=== PATIENT | male | born 1960 | race Caucasian/White ===

== ENCOUNTER 2019-06-20 15:01 | Inpatient (IN) | payer OTHER ==
[~2019-06-20] VITALS: Ht 175.3 cm; Wt 118.4 kg
[~2019-06-20 15:01] MED LIST: HYDR1TAB94 PO
[2019-06-20 15:36] LABS: BASOPHILS ABSOLUTE AUTO 0.07 K/mm3 (0.00-0.23); BASOPHILS PERCENT AUTO 0 % (0-2); EOSINOPHILS PERCENT AUTO 0 % (0-6); Hematocrit 34.9 % (37.0-53.0); Hemoglobin 12.9 g/dL (13.5-17.5); IMMATURE GRAN ABSOLUTE AUTO 1.03 K/mm3 (0.00-0.10); IMMATURE GRAN PERCENT AUTO 6 % (0-1); LYMPHOCYTES PERCENT AUTO 5 % (21-46); MONOCYTES ABSOLUTE AUTO 0.71 K/mm3 (0.16-1.47); MONOCYTES PERCENT AUTO 4 % (4-13); Mean Corpuscular HGB 35.3 pg (26.0-34.0); Mean Corpuscular Volume 96 fL (80-100); Mean Platelet Volume 11.2 fL (9.1-12.4); NEUTROPHILS ABSOLUTE AUTO 15.46 K/mm3 (1.96-9.15); NEUTROPHILS PERCENT AUTO 85 % (41-73); NRBC ABSOLUTE 0.05 K/mm3 (0.00-0.02); NRBC Auto 0.3 /100 WBC (0.0-0.2); Platelet Count 293 K/mm3 (150-400); RDW Coefficient Variation 20.2 % (11.7-14.2); RDW Standard Deviation 67.9 fL (35.1-46.3); Red Blood Cell Count 3.65 M/mm3 (4.30-5.90); White Blood Cell Count 18.17 K/mm3 (4.00-11.30)
[2019-06-20] MEDS ORDERED: METO25 PO (15:39)
[2019-06-20] MEDS ORDERED: SPIR25 PO (15:40)
[2019-06-20] MEDS ORDERED: FLUT1DIS5 INH (15:41)
[2019-06-20] MEDS ORDERED: BUPR150ER PO (15:41)
[2019-06-20] MEDS ORDERED: TAMS.4ER PO (15:41)
[2019-06-20] MEDS ORDERED: Mobic15 MG PO (15:42)
[2019-06-20] MEDS ORDERED: ALBU90OI INH (15:42)
[2019-06-20 15:55] LABS: C-REACTIVE PROTEIN, EXT RANGE 17.1 mg/dL (0.000-0.300); Magnesium, Blood 2.2 mg/dL (1.6-2.4)
[2019-06-20 15:59] LABS: Alanine Aminotransfer (ALT/SGP 63 U/L (12-78); Albumin, Blood 1.5 g/dL (3.4-5.0); Albumin/Globulin Ratio 0.3 (0.8-1.8); Alk Phos 302 U/L (50-136); Anion Gap 14 mmol/L (6-16); Aspartate Aminotrans (AST/SGOT 407 U/L (12-37); Bilirubin, Total 12.6 mg/dL (0.1-1.0); Blood Urea Nitrogen 61 mg/dL (8-24); Bun/Creatinine Ratio 36.1 (12.0-20.0); CO2, Blood 20 mmol/L (21-32); Calcium, Blood 7.2 mg/dL (8.5-10.1); Chloride, Blood 98 mmol/L (98-108); Creatinine, Blood 1.69 mg/dL (0.60-1.20); Glomerular Filtration Rate 44 (60-); Glucose, Blood 91 mg/dL (70-99); Potassium, Blood 3.6 mmol/L (3.5-5.5); Sodium, Blood 132 mmol/L (136-145); Total Protein, Blood 6.5 g/dL (6.4-8.2); Troponin I <0.015 ng/mL (0.000-0.040)
[2019-06-20 16:28] LABS: International Normalized Ratio 1.69; Prothrombin Time Results 17.6 Sec (9.7-11.5)
[2019-06-20 17:32] LABS: Source, Urine Clean Catch
[2019-06-20 17:39] LABS: Blood, Urine 1+ (Neg); Glucose Qualitative, Urine Neg (Neg); Ketones, Urine 1+ (Neg); Leukocyte Esterase, Urine 1+ (Neg); Nitrite, Urine Pos (Neg); Protein, Urine 1+ (Neg); Urobilinogen, Urine 3+ (Normal)
[2019-06-20 17:46] LABS: Appearance, Urine Hazy (Clear); Bilirubin, Urine 3+ (Neg); Color, Urine Orange (P-Yellow)
[2019-06-20 17:54] LABS: U Amphetamine Screen DETECTED; U Barbituate Screen Not Detected; U Benzodiazapine Screen Not Detected; U Buprenorphine Screen Not Detected; U Cannabinoids Screen Not Detected; U Cocaine Screen Not Detected; U Methadone Screen Not Detected; U Methamphetamine Screen DETECTED; U Opiates Screen Not Detected; U Oxycodone Screen Not Detected; U Phencyclidine Screen Not Detected; U Propoxyphene Screen Not Detected
[2019-06-20 17:55] LABS: Amorphous Light (0-Heavy); Bacteria Many /hpf; Hyaline Casts 0-2 /lpf (0-2); Mucus Light (0-Heavy); Squamous Epithelial Cells Few /hpf (Few)
--- NOTE | 2019-06-21 03:58 | NUR ---
SHIFT SUMMARY PT IS A/O X4 AND IND. IN ROOM. PT DOES NEED STANDBY ASSIST AT TIMES FOR WEAKNESS AND SOB. PT REPORTS SOME SHORTNESS OF BREATH WITH EXERTION. PT HAS NOT REQUIRED O2 DURING THE NIGHT TO MAINTAIN O2 SATURATION ABOVE 92%. SKIN APPEARS JAUNDICED AND PT DOES HAVE SIGNIFICANT BLE EDEMA. TELE HAS BEEN IN PLACE THROUGHOUT THE SHIFT. NO ACUTE CHANGES. ASSISTED WITH ADL'S PRN.
[2019-06-21 04:54] LABS: BASOPHILS ABSOLUTE AUTO 0.06 K/mm3 (0.00-0.23); BASOPHILS PERCENT AUTO 0 % (0-2); EOSINOPHILS ABSOLUTE AUTO 0.01 K/mm3 (0.00-0.68); EOSINOPHILS PERCENT AUTO 0 % (0-6); Hemoglobin 12.3 g/dL (13.5-17.5); IMMATURE GRAN ABSOLUTE AUTO 1.12 K/mm3 (0.00-0.10); IMMATURE GRAN PERCENT AUTO 7 % (0-1); LYMPHOCYTES ABSOLUTE AUTO 0.94 K/mm3 (0.84-5.20); LYMPHOCYTES PERCENT AUTO 6 % (21-46); MONOCYTES ABSOLUTE AUTO 0.82 K/mm3 (0.16-1.47); MONOCYTES PERCENT AUTO 5 % (4-13); Mean Corpuscular HGB 34.6 pg (26.0-34.0); Mean Corpuscular HGB Conc 35.1 g/dL (31.5-36.5); Mean Platelet Volume 11.2 fL (9.1-12.4); NEUTROPHILS ABSOLUTE AUTO 12.82 K/mm3 (1.96-9.15); NEUTROPHILS PERCENT AUTO 81 % (41-73); NRBC ABSOLUTE 0.04 K/mm3 (0.00-0.02); NRBC Auto 0.3 /100 WBC (0.0-0.2); Platelet Count 238 K/mm3 (150-400); RDW Coefficient Variation 21.2 % (11.7-14.2); RDW Standard Deviation 74.3 fL (35.1-46.3); Red Blood Cell Count 3.55 M/mm3 (4.30-5.90); White Blood Cell Count 15.77 K/mm3 (4.00-11.30)
[2019-06-21 05:08] LABS: International Normalized Ratio 1.77; Prothrombin Time Results 18.3 Sec (9.7-11.5)
[2019-06-21 05:15] LABS: Mean Corpuscular Volume 99 fL (80-100)
[2019-06-21 05:32] LABS: Albumin, Blood 1.3 g/dL (3.4-5.0); Albumin/Globulin Ratio 0.3 (0.8-1.8); Bilirubin, Total 11.9 mg/dL (0.1-1.0); Bun/Creatinine Ratio 32.3 (12.0-20.0); Calcium, Blood 6.8 mg/dL (8.5-10.1); Creatinine, Blood 1.61 mg/dL (0.60-1.20); Globulin, Blood 4.7 g/dL (2.2-4.0); Potassium, Blood 3.5 mmol/L (3.5-5.5)
[2019-06-21 05:34] LABS: BAND PERCENT MAN 7 % (0-8); BASOPHILS PERCENT MAN 0 % (0-2); EOSINOPHILS PERCENT MAN 0 % (0-6); LYMPHOCYTES ABSOLUTE MAN 1.73 K/mm3 (0.84-5.20); LYMPHOCYTES PERCENT MAN 11 % (21-46); MONOCYTES ABSOLUTE MAN 0.15 K/mm3 (0.16-1.47); MONOCYTES PERCENT MAN 1 % (4-13); NEUTROPHILS ABSOLUTE MAN 13.87 K/mm3 (1.96-9.15); SEG NEUTROPHILS PERCENT MAN 81 % (41-73); TOTAL CELLS COUNTED 100
--- NOTE | 2019-06-21 10:08 | NUR ---
CARE ASSUMED REPORT RECEIVED, CARE ASSUMED AT 0700 FROM BEBA BURDEN. PT RESTING QUIETLY IN BED, DECLINES NEEDS ON INITIAL ROUNDS. DURING ASSESSMENT, PT BECOMES FRUSTRATED, SWEARING ABOUT CIRCUMSTANCES, MEDICAL EQUIPMENT AND FREQUENCY OF STAFF AT BEDSIDE. PT EDUCATED. AGREEABLE AND REDIRECTABLE. PLAN MADE WITH PATIENT TO BUNDLE CARE. PT REPORTS SHORTNESS OF BREATH AT REST, BUT REPORTS IT IS GETTING BETTER. VITALS STABLE. PT REPORTS NEEDING TO USE BATHROOM. REFUSES HELP OR THE USE OF URINAL. REFUSES STAFF TO BE AT SIDE. REFUSES SOCKS. GETS TO BATHROOM AND BACK TO BED WITH MINIMAL DIFFICULTY. PT DOES REPORT INCREASED SOB. PT IS WEAK, BUT STEADY ON FEET. AGREEABLE TO USE CALL LIGHT FOR STAFF STANDBY FOR GETTING UP TO USE RESTROOM. PT REFUSES FULL SKIN ASSESSMENT AND DECLINES FRESH UNDERWEAR HIS ARE FROM HOME. CALL LIGHT IN REACH.
--- NOTE | 2019-06-21 12:16 | NUR ---
ECHOCARDIOGRAM COMPLETE
[2019-06-21 14:35] LABS: Adenovirus Not Detected (NOT DETECT); Bordetella pertussis Not Detected (NOT DETECT); Chlamydophila pneumoniae Not Detected (NOT DETECT); Coronavirus 229E Not Detected (NOT DETECT); Coronavirus HKU1 Not Detected (NOT DETECT); Coronavirus NL63 Not Detected (NOT DETECT); Coronavirus OC43 Not Detected (NOT DETECT); Human Metapneumovirus Not Detected (NOT DETECT); Human Rhinovirus/Enterovirus Not Detected (NOT DETECT); Influenza A/2009-H1 Not Detected (NOT DETECT); Influenza A/H1 Not Detected (NOT DETECT); Influenza A/H3 Not Detected (NOT DETECT); Influenza B Not Detected (NOT DETECT); Mycoplasma pneumoniae Not Detected (NOT DETECT); Parainfluenza Virus 1 Not Detected (NOT DETECT); Parainfluenza Virus 2 Not Detected (NOT DETECT); Parainfluenza Virus 3 Not Detected (NOT DETECT); Parainfluenza Virus 4 Not Detected (NOT DETECT); Respiratory Syncytial Virus Not Detected (NOT DETECT)
--- NOTE | 2019-06-21 17:48 | NUR ---
SUMMARY THROUGHOUT DAY, PT NOTED TO BE GETTING UP WITHOUT USING CALL LIGHT. EDUCATED FREQUENTLY, PT SHRUGS OFF EDUCATION, SAYING, "YEAH, MMHMM," AND THEN GETTING UP ANYWAYS. BED ALARM INITIATED DUE TO THIS, AND SINCE THEN PT HAS CALLED APPROPRIATELY. PT EATING ONLY SMALL AMOUNT OF MEALS BECAUSE "IT'S DISCUSTING." PT USING PROFANITIES WITH EVERY SENTENCE, BUT IS CALM AND MOSTLY COOPERATIVE. PT EDUCATED WITH EVERY INTERACTION REGARDING PLAN OF CARE, REASONING FOR VARIOUS INTERVENTIONS, AND PT'S RIGHTS AND RESPONSIBILITIES. PT REPOSITIONING SELF OCCASIONALLY IN BED, BUT HAS BEEN RESTING QUIETLY FOR MOST OF THE DAY. DENIES PAIN THROUGHOUT DAY. VITALS STABLE. CONTINUOUS TELEMETRY MONITORING, NO ACUTE EVENTS. SIGNIFICANT EDEMA CONTINUES TO BILATERAL LEGS. PT USES BATHROOM FREQUENTLY, BUT REFUSES STAFF ASSIST OR USE OF URINAL TO MEASURE ON MOST OCCASIONS, STATING, "I GOT IT," AND NOT ALLOWING STAFF TIME TO EDUCATE THE REASON. NO BOWEL MOVEMENT THIS SHIFT. PT STATES, "I HATE MY KIDS." WHEN ASKED ABOUT SUPPORT SYSTEM HE MENTIONS HE HAS A GIRLFRIEND OF A FEW YEARS. ASKED IF PT FEELS HE NEEDS FURTHER SUPPORT AND HE STATES, "NO." TELLS ME THAT ALL THE PEOPLE IN [place] SHOULD , USING VARIOUS PROFANITIES, BUT IS NOT AGGRESSIVE AT ALL TOWARDS STAFF.
--- NOTE | 2019-06-21 22:34 | NUR ---
ASSUMED CARE AT 1900. PT HAS REPORTED SOB WITH EXERTION BUT OTHERWISE STATES HE FEELS MUCH BETTER. PT REFUSES HELP TO BATHROOM; EDUCATION PROVIDED ON SAFETY. PT IS AGREEABLE TO CALL WHEN HE NEEDS TO USE RESTROOM. URINAL AT BEDSIDE. PT IS STABLE ON HIS FEET BUT GETS SOB AT TIMES. PT REFUSES NON-SKID SOCKS AND FRESH UNDERWEAR. PT EXPRESSED APPRECIATION FOR THE QUALITY OF CARE HE IS RECEIVING HERE, ALTHOUGH HE DOES GET AGITATED BY FREQUENCY OF STAFF PROVIDING CARE. DISCUSSED NECESSITY OF INTERVENTIONS AND BUNDLING CARE. PT RESTING QUIETLY IN BED AT THIS TIME. WCTM.
--- NOTE | 2019-06-22 03:50 | NUR ---
SHIFT SUMMARY PT IS A/O X4. HE HAS BEEN STABLE ON HIS FEET BUT GETS SOB WITH EXERTION. PT HAS BEEN ENCOURAGED TO USE CALL LIGHT WHEN HE NEEDS TO USE RESTROOM AND HAS BEEN COMPLIANT WITH THIS DURING THE NIGHT. URINAL IS AT BEDSIDE WELL. LUNGS HAVE SOUNDED WHEEZY, HOWEVER THEY DO SOUND IMPROVED SINCE 06/19 NOC SHIFT. PT REPORTS FEELING BETTER AND LESS SOB THAN YESTERDAY. PT DOES HAVE BLE EDEMA WHICH HE THINKS IS IMPROVING WELL. PT HAS SEEMED ANNOYED / IRRITABLE AT TIMES BUT HAS BEEN COMPLIANT WITH CARE. NO ACUTE CHANGES. WCTM.
[2019-06-22 04:43] LABS: Hematocrit 34.3 % (37.0-53.0); Hemoglobin 12.1 g/dL (13.5-17.5); Mean Corpuscular HGB 34.7 pg (26.0-34.0); Mean Corpuscular HGB Conc 35.3 g/dL (31.5-36.5); Mean Corpuscular Volume 98 fL (80-100); Mean Platelet Volume 11.2 fL (9.1-12.4); NRBC ABSOLUTE 0.03 K/mm3 (0.00-0.02); NRBC Auto 0.2 /100 WBC (0.0-0.2); Platelet Count 223 K/mm3 (150-400); RDW Coefficient Variation 21.3 % (11.7-14.2); Red Blood Cell Count 3.49 M/mm3 (4.30-5.90); White Blood Cell Count 16.92 K/mm3 (4.00-11.30)
[2019-06-22 04:59] LABS: International Normalized Ratio 1.61; Prothrombin Time Results 16.8 Sec (9.7-11.5)
[2019-06-22 05:06] LABS: Alanine Aminotransfer (ALT/SGP 60 U/L (12-78); Albumin, Blood 1.3 g/dL (3.4-5.0); Albumin/Globulin Ratio 0.3 (0.8-1.8); Alk Phos 283 U/L (50-136); Anion Gap 9 mmol/L (6-16); Aspartate Aminotrans (AST/SGOT 349 U/L (12-37); Bilirubin, Total 13.3 mg/dL (0.1-1.0); Blood Urea Nitrogen 35 mg/dL (8-24); Bun/Creatinine Ratio 37.2 (12.0-20.0); CO2, Blood 25 mmol/L (21-32); Calcium, Blood 6.9 mg/dL (8.5-10.1); Chloride, Blood 103 mmol/L (98-108); Creatinine, Blood 0.94 mg/dL (0.60-1.20); Globulin, Blood 4.7 g/dL (2.2-4.0); Glomerular Filtration Rate >60 (60-); Glucose, Blood 81 mg/dL (70-99); Magnesium, Blood 1.9 mg/dL (1.6-2.4); Phosphorus, Blood 2.2 mg/dL (2.5-4.9); Sodium, Blood 137 mmol/L (136-145)
[2019-06-22 05:54] LABS: BAND PERCENT MAN 8 % (0-8); BASOPHILS PERCENT MAN 0 % (0-2); EOSINOPHILS PERCENT MAN 0 % (0-6); LYMPHOCYTES ABSOLUTE MAN 1.18 K/mm3 (0.84-5.20); LYMPHOCYTES PERCENT MAN 7 % (21-46); METAMYELOCYTE ABSOLUTE MAN 0.33 K/mm3 (0.00-0.00); METAMYELOCYTE PERCENT MAN 2 % (0-0); MONOCYTES ABSOLUTE MAN 0.84 K/mm3 (0.16-1.47); MONOCYTES PERCENT MAN 5 % (4-13); NEUTROPHILS ABSOLUTE MAN 14.55 K/mm3 (1.96-9.15); SEG NEUTROPHILS PERCENT MAN 78 % (41-73); TOTAL CELLS COUNTED 100
--- NOTE | 2019-06-22 08:00 | NUR ---
pt laying in bed awake a/ox3, states he didn't sleep well and wants to sleep for a while, cooperative with care, follows commands well, denies pain or concerns, lungs have exp wheezing t/o, resp even and unlabored, occ prod cough, sob with exetion, hrr, tele in place running sr per monitor, see strip, edema noted to b/l le, cap refill <3sec, vs stable, afebrile, iv site to left fa, site is clear and patent, btx4, abd flat soft nontender, voids without diff, skin c/w/d, maew, luz marina, call light in reach.
--- NOTE | 2019-06-22 14:06 | NUR ---
pt status has been changed to medical, he is informed, and we have a room for him. gave report to Aleshia. will transfer him up to medical via wheelchair.
--- NOTE | 2019-06-22 18:09 | NUR ---
A+O, NEW FROM PCU, rm air, saline locked, call light in reach, sleepy and wants to be left alone, alarm on bed due to unsteady on feet, cooperative with direct instructions but tends to want to do own thing when left unsupervised, senior care manager needs warning before pt is sent home
--- NOTE | 2019-06-22 20:08 | NUR ---
ASSUMED CARE. ANDREY WAS AWAKE, TAKING INHALER BY RT. DENIES ANY PAIN OR DISCOMFORT. STATES NUMBNESS TO LEFT SIDE OF BODY WHICH IS NORMAL FOR HIM. DENIES ANY CARDIAC OR RESPIRTORY SYMPTOMS. LUNG SOUNDS ARE EXPIRTORY WHEEZES THROUGHOUT. DENIES SOB. SATS IN LOW 90'S ON RA. DENIES GROIN AND COCCYX ASSESSMENT. URINE OUTPUT VERY DARK ORANGE COLOR. ENCOURAGED HIM TO DRINK MORE WATER. HE JUST SAID OK. IV ANTIBOTIC HUNG. PM MED GIVEN. GAVE SPRITE PER HIS REQUEST. DENIES ANY OTHER NEEDS AT THIS TIME. WILL CONTINUE TO MONITOR.
--- NOTE | 2019-06-22 20:58 | NUR ---
PT AHS REFUSED TO EAT DINNER. NURSE NOTIFIED
--- NOTE | 2019-06-22 22:58 | NUR ---
ANDREY IS LAYING DOWN ON SIDE IN BED. LIGHTS ARE OFF. HE APPEARS TO BE SLEEPING COMFORTABLY. CALL LIGHT IS IN REACH. WILL CONTINUE TO MONITOR.
--- NOTE | 2019-06-23 02:19 | NUR ---
ANDREY IS SLEEPING COMFORTABLY, NO SIGNS OF DISTRESS. CALL LIGHT IN REACH.
--- NOTE | 2019-06-23 05:08 | NUR ---
SHIFT SUMMARY: 58 Y/O ADMITTED FOR ERIC. AOX3, INDEPENDENT IN RM, USES URINAL BUT NOT CORRECTLY. SEVERAL SPILLS TO FLOOR THIS SHIFT. VERY QUITE AND LIKES TO SLEEP AND NOT BE MESSED WITH. URINE VERY DARK ORANGE THICK, NO ODOR. ENCOURAGED INCREASE INTAKE. BLE EDEMA +1 LEFT GREATER THEN RIGHT. JAUDICE, NO SKIN BREAKDOWN. TELEMETRY PLACED ON, RUNNING SINUS. LS-EXPIRTORY WHEEZES T/O, NO COUGH. IV ANTIBOTIC ADMINISTERED, IV NOW SL. SLEPT MOST OF SHIFT. VS WNL, NO PAIN NOTED. WILL CONTINUE TO MONITOR TILL DAY SHIFT ARRIVES.
[2019-06-23 05:22] LABS: Hematocrit 34.5 % (37.0-53.0); Hemoglobin 12.2 g/dL (13.5-17.5); Mean Corpuscular HGB 35.2 pg (26.0-34.0); Mean Corpuscular HGB Conc 35.4 g/dL (31.5-36.5); Mean Corpuscular Volume 99 fL (80-100); Mean Platelet Volume 10.8 fL (9.1-12.4); NRBC ABSOLUTE 0.04 K/mm3 (0.00-0.02); NRBC Auto 0.2 /100 WBC (0.0-0.2); Platelet Count 223 K/mm3 (150-400); RDW Coefficient Variation 21.2 % (11.7-14.2); RDW Standard Deviation 73.3 fL (35.1-46.3); Red Blood Cell Count 3.47 M/mm3 (4.30-5.90); White Blood Cell Count 17.13 K/mm3 (4.00-11.30)
[2019-06-23 05:48] LABS: Magnesium, Blood 1.7 mg/dL (1.6-2.4)
[2019-06-23 05:49] LABS: Alanine Aminotransfer (ALT/SGP 57 U/L (12-78); Albumin, Blood 1.4 g/dL (3.4-5.0); Albumin/Globulin Ratio 0.3 (0.8-1.8); Alk Phos 276 U/L (50-136); Anion Gap 10 mmol/L (6-16); Aspartate Aminotrans (AST/SGOT 312 U/L (12-37); Bilirubin, Total 14.8 mg/dL (0.1-1.0); Blood Urea Nitrogen 24 mg/dL (8-24); Bun/Creatinine Ratio 29.8 (12.0-20.0); CO2, Blood 24 mmol/L (21-32); Calcium, Blood 6.9 mg/dL (8.5-10.1); Chloride, Blood 102 mmol/L (98-108); Creatinine, Blood 0.81 mg/dL (0.60-1.20); Globulin, Blood 4.6 g/dL (2.2-4.0); Glomerular Filtration Rate >60 (60-); Glucose, Blood 83 mg/dL (70-99); Phosphorus, Blood 1.9 mg/dL (2.5-4.9); Potassium, Blood 3.1 mmol/L (3.5-5.5); Sodium, Blood 136 mmol/L (136-145)
[2019-06-23 05:54] LABS: BAND PERCENT MAN 6 % (0-8); BASOPHILS PERCENT MAN 0 % (0-2); EOSINOPHILS PERCENT MAN 0 % (0-6); LYMPHOCYTES ABSOLUTE MAN 0.68 K/mm3 (0.84-5.20); LYMPHOCYTES PERCENT MAN 4 % (21-46); METAMYELOCYTE ABSOLUTE MAN 0.34 K/mm3 (0.00-0.00); METAMYELOCYTE PERCENT MAN 2 % (0-0); MONOCYTES ABSOLUTE MAN 1.19 K/mm3 (0.16-1.47); MONOCYTES PERCENT MAN 7 % (4-13); MYELOCYTE ABSOLUTE MAN 0.17 K/mm3 (0.00-0.00); MYELOCYTE PERCENT MAN 1 % (0-0); NEUTROPHILS ABSOLUTE MAN 14.73 K/mm3 (1.96-9.15); SEG NEUTROPHILS PERCENT MAN 80 % (41-73); TOTAL CELLS COUNTED 100
--- NOTE | 2019-06-23 15:57 | NUR ---
PT PULLED IV WHILE SLEEPING, NO IV ACCESS AT THIS TIME, ONLY FIRST BAG OF ALBUMIN INFUSED. DR. NEGRON MADE AWARE. OK TO DC 2ND DOSE OF ALBUMIN. PER DR. NEGRON IV ABX AND LASIX TO BE SWITCHED TO PO. ALSO OK TO NOT RESTART IV
--- NOTE | 2019-06-23 16:55 | NUR ---
SUMMARY: NO ACUTE CHANGE TODAY. PT SPENT MAJORITY OF THE DAY NAPING. VSS, A/O, INDEPENDENT IN ROOM. PT HAS FLAT AFFECT. TELE DC'D TODAY. PT DENIES SOB, PER PT SWELLING IN EXT IS IMPROVING. PT WORKED WITH OT/PT AND PER THEIR REPORT DID WELL. PLAN IS POSSIBLE DC TOMORROW, NO SAFETY CONCERNS AT THIS TIME.
--- NOTE | 2019-06-23 19:30 | NUR ---
ASSUMED CARE. ANDREY IS IN A GRUMPY MOOD, WANTS TO GET OUT OF THE HOSPITAL. OFFERED TO CHANGE HIS PANTS HE HAS URINE STANS ALL DOWN THE FRONT. HE SAID NO HE WILL JUST PEE ALL OVER THEM LATER ANYWAYS. DENIES ANY PAIN OR ISSES. SAYS NO TO EVERYTHING. JUST WANTS US TO LEAVE HIM ALONE. DOESN'T EVEN CALL FOR ASSISTANCE WITH URINAL, OFFERED TO HELP HIM. SKIN IS STILL JAUDICE, LUNGS ARE CLEAR. HR IS TACHYCARDIC, HAS BEEN RUNNING LOW 100'S HIGHEST IS 110 TODAY. DENIES CHEST PAIN OR SOB. STATES HE FEELS FINE. WILL CONITNUE TO MONITOR HIM. TELE WAS REMOVED TODAY. CALL LIGHT IN REACH.
--- NOTE | 2019-06-23 20:36 | NUR ---
ADMINISTERED MEDS, SWALLOWED THEM WITH SODA. DENIES ANY NEEDS AT THIS TIME. WILL RECHECK BACK SHORTLY.
--- NOTE | 2019-06-23 21:15 | NUR ---
ANDREY CALLED DUE TO IV MACHINE ALARMING. TURNED OFF MACHINE. ASKED IF HE NEEDS CLEAN LINEN, NIMA WENT TO GET HIM PANTS. HE ASKED WHY DO WE ARE DOING IT. INFORMED HIM WE LIKE TO MAKE SURE OUR PATIENTS ARE CLEAN AND TAKEN CARE BEFORE GOING TO BED. HE SAID THAT IS NICE OF US BUT HE REALLY DON'T GIVE A CRAP ABOUT STAYING CLEAN OR BEING CLEAN. HE DID ALLOW NIMA TO CHANGE HIS CLOTHES AND CHECK LINENS. URINE STILL VERY LITTLE 100 AT A TIME, STILL THICK DARK TEA COLOR THAT STAINS THE FLOOR OR TOLIET.
--- NOTE | 2019-06-23 22:03 | NUR ---
ANDREY IS LAYING IN BED, TURNED FACING THE WINDOW. NO SIGNS OF DISTRESS. CALL LIGHT IN REACH. WILL CONITNUE TO DO ROUNDING.
--- NOTE | 2019-06-24 00:12 | NUR ---
PATIENTS GIRLFRIEND JENNIFER HOLLOWAY CALLED IN CONCERN ON HOW THE PATIENT IS DOING. STATES SHE HAS BEEN TRYING TO REACH HIM ALL DAY. CHECKED CONSENT, THERE WAS NO CONSENT IN THE CHART BUT SHE IS HIS NEXT OF KIN/ EMERGENCY CONTACT. SHE INFORMED ME THAT SHE IS OFF ON SATURDAY AND SATURDAY. SATURDAY AND SATURDAY SHE ONLY WORKS TILL 1330. SAT-SAT SHE WORDS TILL 2129. SHE IS VERY CONCERNED ABOUT ANDREY, SHE DID NOT KNOW HE WAS USING METH OR DRINKING ALOT. SHE REPORTED THAT HE DID TELL HER THAT HE HAS NO PLANS ON QUITING METH AND SHE COULD NOT STOP HIM FROM DOING SO. SHE IS CONCERNED SHE DOES NOT HAVE ANY EQUIPMENT AT HOME TO FOR HIM, BUT IS ASKING FOR HOME HEALTH TO COME IN. SHE IS TALKING ABOUT FINDING SOMEONE TO CHECK IN ON HIM WHILE SHE IS AT WORK, BUT DOES NEEDS ASSISTANCE IN DOING SO. SHE SAID THE SW TRIED TO TALK TO HER BUT SHE DID NOT HAVE GOOD RECEPTTION ON HER PHONE, AND WOULD LIKE TO TALK TO HER AGAIN. ENCOURAGED HER TO CALL BACK TOMORROW WHEN HE IS AWAKE.
--- NOTE | 2019-06-24 00:27 | NUR ---
ROUNDED ON ANDREY, HE IS STILL LYING WITH BACK FACED TO THE DOOR. NO DISTRESS NOTED. CALL LIGHT IN REACH. TORQUE TESTER ALREADY EMPTIED THE URINAL.
--- NOTE | 2019-06-24 01:52 | NUR ---
PATIENT STILL SLEEPING COMFORTABLY. CALL LIGHT IN REACH. WILL CONTINUE TO MONITOR.
--- NOTE | 2019-06-24 03:52 | NUR ---
ANDREY IS SLEEPING STILL. WILL CONTINUE TO MONTIOR.
[2019-06-24 04:12] LABS: BASOPHILS ABSOLUTE AUTO 0.09 K/mm3 (0.00-0.23); BASOPHILS PERCENT AUTO 1 % (0-2); EOSINOPHILS PERCENT AUTO 0 % (0-6); Hematocrit 35.1 % (37.0-53.0); Hemoglobin 12.3 g/dL (13.5-17.5); IMMATURE GRAN ABSOLUTE AUTO 1.53 K/mm3 (0.00-0.10); IMMATURE GRAN PERCENT AUTO 8 % (0-1); LYMPHOCYTES ABSOLUTE AUTO 1.11 K/mm3 (0.84-5.20); LYMPHOCYTES PERCENT AUTO 6 % (21-46); MONOCYTES ABSOLUTE AUTO 1.22 K/mm3 (0.16-1.47); MONOCYTES PERCENT AUTO 7 % (4-13); Mean Corpuscular Volume 100 fL (80-100); Mean Platelet Volume 10.5 fL (9.1-12.4); NEUTROPHILS ABSOLUTE AUTO 14.38 K/mm3 (1.96-9.15); NEUTROPHILS PERCENT AUTO 78 % (41-73); NRBC ABSOLUTE 0.04 K/mm3 (0.00-0.02); NRBC Auto 0.2 /100 WBC (0.0-0.2); Platelet Count 201 K/mm3 (150-400); RDW Coefficient Variation 21.4 % (11.7-14.2); RDW Standard Deviation 74.4 fL (35.1-46.3); Red Blood Cell Count 3.51 M/mm3 (4.30-5.90); White Blood Cell Count 18.33 K/mm3 (4.00-11.30)
[2019-06-24 04:32] LABS: Alanine Aminotransfer (ALT/SGP 58 U/L (12-78); Albumin, Blood 1.5 g/dL (3.4-5.0); Albumin/Globulin Ratio 0.3 (0.8-1.8); Alk Phos 256 U/L (50-136); Anion Gap 10 mmol/L (6-16); Aspartate Aminotrans (AST/SGOT 306 U/L (12-37); Blood Urea Nitrogen 22 mg/dL (8-24); Bun/Creatinine Ratio 26.5 (12.0-20.0); CO2, Blood 24 mmol/L (21-32); Calcium, Blood 7.2 mg/dL (8.5-10.1); Chloride, Blood 101 mmol/L (98-108); Creatinine, Blood 0.83 mg/dL (0.60-1.20); Globulin, Blood 4.5 g/dL (2.2-4.0); Glomerular Filtration Rate >60 (60-); Glucose, Blood 91 mg/dL (70-99); Potassium, Blood 3.2 mmol/L (3.5-5.5); Sodium, Blood 135 mmol/L (136-145)
[2019-06-24 04:36] LABS: BAND PERCENT MAN 11 % (0-8); BASOPHILS PERCENT MAN 0 % (0-2); EOSINOPHILS PERCENT MAN 0 % (0-6); LYMPHOCYTES ABSOLUTE MAN 0.18 K/mm3 (0.84-5.20); LYMPHOCYTES PERCENT MAN 1 % (21-46); METAMYELOCYTE ABSOLUTE MAN 0.18 K/mm3 (0.00-0.00); METAMYELOCYTE PERCENT MAN 1 % (0-0); MONOCYTES ABSOLUTE MAN 0.54 K/mm3 (0.16-1.47); MONOCYTES PERCENT MAN 3 % (4-13); MYELOCYTE ABSOLUTE MAN 0.18 K/mm3 (0.00-0.00); MYELOCYTE PERCENT MAN 1 % (0-0); NEUTROPHILS ABSOLUTE MAN 17.23 K/mm3 (1.96-9.15); SEG NEUTROPHILS PERCENT MAN 83 % (41-73); TOTAL CELLS COUNTED 100
--- NOTE | 2019-06-24 07:36 | NUR ---
SHIFT SUMMARY: 58 Y/O ADMITTED FOR ACUTE KIDNEY INJURY. ANDREY STILL NOT MOTIVATED IN CARE. LAYS IN BED SLEEPING 90% OF SHIFT. STATES HE DOES NOT CARE ABOUT CLEANINESS OR TAKING CARE OF SELF. SPOKE WITH SIGNFICANT OTHER LAST NIGHT WHO STATES SHE WILL NEED HOME HEALTH. SHE IS VERY CONCERNED HE TOLD HER THAT HE WILL CONTINUE TO DO METH AND DRINK, THAT NO ONE WILL STOP HIM. TRIAL LAWYER WAS ABLE TO CHANGE CLOTHING THIS SHIFT. APPETITE IS STILL VERY POOR, DID NOT EAT ANYTHING OFF HIS TRAY. LUNGS WERE CLEAR TONIGHT, TRACE EDEMA STILL PRESENT. OUTPUT 650, INTAKE 480. LABS THIS AM SHOWS WBC 18.33 AND K+ 3.2. VS SHOWED TACHYCARDIC RUNNING IN 110'S, DENIED ANY CHEST PAIN. JAUDICE, NO SKIN BREAKDOWN. USES CALL LIGHT APPROPRIATLY, INDEPENDENT IN ROOM. REPORT GIVEN TO DAY SHIFT.
[2019-06-24] MEDS ORDERED: FURO20 PO (11:16)
[2019-06-24] MEDS ORDERED: LEVFLO500 PO (11:17)
[2019-06-24] MEDS ORDERED: MIDO5 PO (11:18)
--- NOTE | 2019-06-24 13:09 | NUR ---
DISCHARGE REVIEWED WITH PT . PT VERBALIZED UNDERSATNDING OF MEDS AND INST. MEDS TO SAVE-ON. NO IV, NO TELE. PT TO GO PER OWN TAXI AT 1314
== END 2019-06-24 13:20 | disposition home or self-care (01) | DRG 871 ==
LOC: ER 15:01 → PCU 15:02 → MEDS 15:02 → PCU 18:46 → MEDS 06-22 14:47 → ENPENDDIS 06-24 11:00 → MEDS 06-24 13:20
PROVIDERS: Emergency Medicine; Internal Medicine; Physician Assistant; ADMIT Hospitalist
DX: A41.9 Sepsis, unspecified organism (principal); I50.23 Acute on chronic systolic (congestive) heart failure; N17.9 Acute kidney failure, unspecified; J44.1 Chronic obstructive pulmonary disease with (acute) exacerbation; E87.1 Hypo-osmolality and hyponatremia; N39.0 Urinary tract infection, site not specified; I11.0 Hypertensive heart disease with heart failure; E87.6 Hypokalemia; I95.9 Hypotension, unspecified; F19.10 Other psychoactive substance abuse, uncomplicated; K70.9 Alcoholic liver disease, unspecified; K70.10 Alcoholic hepatitis without ascites; E88.09 Other disorders of plasma-protein metabolism, not elsewhere classified; N40.0 Benign prostatic hyperplasia without lower urinary tract symptoms; F32.9 Major depressive disorder, single episode, unspecified; F17.200 Nicotine dependence, unspecified, uncomplicated; Z79.1 Long term (current) use of non-steroidal anti-inflammatories (NSAID); Z79.51 Long term (current) use of inhaled steroids
CPT/HCPCS: 0099U; 36415; 71045; 76705; 80053; 81001; 83605; 83690; 83735; 83880; 84100; 84145; 84484; 85025; 85610; 86140; 87040; 87086; 93005; 93010; 93306; 94640; 94760; 96361; 96365; 97165; 97535; 99285-25; A9270; J0696; J1940; J2543; J7030; J7060; J7120; P9046; U0003

== ENCOUNTER 2019-07-03 13:46 | Inpatient (IN) | payer OTHER ==
[~2019-07-03] VITALS: Ht 175.3 cm; Wt 112.4 kg
[~2019-07-03 13:46] MED LIST changes: +ALBU90OI INH; +BUPR150ER PO; +FLUT1DIS5 INH; +FURO20 PO; +LEVFLO500 PO; +METO25 PO; +MIDO5 PO; +Mobic15 MG PO; +SPIR25 PO; +TAMS.4ER PO
[2019-07-03] MEDS ORDERED: ALBU90OI INH (14:07)
[2019-07-03] MEDS ORDERED: FLUT1DIS5 INH (14:07)
[2019-07-03] MEDS ORDERED: SPIR25 PO (14:08)
[2019-07-03] MEDS ORDERED: METO25 PO (14:08)
[2019-07-03] MEDS ORDERED: FURO20 PO (14:08)
[2019-07-03] MEDS ORDERED: MIDO5 PO (14:08)
[2019-07-03] MEDS ORDERED: TAMS.4ER PO (14:09)
[2019-07-03] MEDS ORDERED: BUPR150ER PO (14:09)
[2019-07-03 14:27] LABS: Hematocrit 40.4 % (37.0-53.0); Hemoglobin 14.2 g/dL (13.5-17.5); Mean Corpuscular HGB 36.5 pg (26.0-34.0); Mean Corpuscular HGB Conc 35.1 g/dL (31.5-36.5); Mean Platelet Volume 10.4 fL (9.1-12.4); NRBC ABSOLUTE 0.13 K/mm3 (0.00-0.02); NRBC Auto 0.4 /100 WBC (0.0-0.2); Platelet Count 204 K/mm3 (150-400); RDW Coefficient Variation 19.9 % (11.7-14.2); RDW Standard Deviation 73.3 fL (35.1-46.3); Red Blood Cell Count 3.89 M/mm3 (4.30-5.90); White Blood Cell Count 29.94 K/mm3 (4.00-11.30)
[2019-07-03 14:28] LABS: Mean Corpuscular Volume 104 fL (80-100)
[2019-07-03 14:58] LABS: Alanine Aminotransfer (ALT/SGP 73 U/L (12-78); Albumin, Blood 1.4 g/dL (3.4-5.0); Albumin/Globulin Ratio 0.3 (0.8-1.8); Alk Phos 303 U/L (50-136); Anion Gap 12 mmol/L (6-16); Aspartate Aminotrans (AST/SGOT 339 U/L (12-37); Bilirubin, Total 20.4 mg/dL (0.1-1.0); Blood Urea Nitrogen 34 mg/dL (8-24); Bun/Creatinine Ratio 34.2 (12.0-20.0); CO2, Blood 25 mmol/L (21-32); Calcium, Blood 7.7 mg/dL (8.5-10.1); Chloride, Blood 99 mmol/L (98-108); Creatinine, Blood 0.99 mg/dL (0.60-1.20); Globulin, Blood 4.9 g/dL (2.2-4.0); Glomerular Filtration Rate >60 (60-); Glucose, Blood 114 mg/dL (70-99); Potassium, Blood 3.2 mmol/L (3.5-5.5); Sodium, Blood 136 mmol/L (136-145); Total Protein, Blood 6.3 g/dL (6.4-8.2)
[2019-07-03 15:00] LABS: BAND PERCENT MAN 6 % (0-8); BASOPHILS PERCENT MAN 0 % (0-2); EOSINOPHILS PERCENT MAN 0 % (0-6); LYMPHOCYTES ABSOLUTE MAN 2.09 K/mm3 (0.84-5.20); LYMPHOCYTES PERCENT MAN 7 % (21-46); MONOCYTES ABSOLUTE MAN 1.19 K/mm3 (0.16-1.47); MONOCYTES PERCENT MAN 4 % (4-13); MYELOCYTE ABSOLUTE MAN 0.29 K/mm3 (0.00-0.00); MYELOCYTE PERCENT MAN 1 % (0-0); NEUTROPHILS ABSOLUTE MAN 26.34 K/mm3 (1.96-9.15); SEG NEUTROPHILS PERCENT MAN 82 % (41-73); TOTAL CELLS COUNTED 100
[2019-07-03 17:24] LABS: Source, Urine Clean Catch
[2019-07-03 17:27] LABS: Blood, Urine 2+ (Neg); Glucose Qualitative, Urine Neg (Neg); Ketones, Urine Neg (Neg); Leukocyte Esterase, Urine 1+ (Neg); Nitrite, Urine Pos (Neg); Protein, Urine 2+ (Neg); Urobilinogen, Urine 3+ (Normal)
[2019-07-03 17:36] LABS: Appearance, Urine Cloudy (Clear); Bilirubin, Urine 3+ (Neg); Color, Urine Brown (P-Yellow)
[2019-07-03 17:39] LABS: Amorphous Light (0-Heavy); Bacteria Few /hpf; Red Blood Cells, Urine 0-2 /hpf (0-2); Squamous Epithelial Cells Few /hpf (Few); White Blood Cells, Urine 0-2 /hpf (0-5)
[2019-07-03 17:40] LABS: Hyaline Casts Rare /lpf (0-2)
[2019-07-03 17:41] LABS: Granular Casts Rare /lpf (0)
[2019-07-03 17:48] LABS: U Amphetamine Screen Not Detected; U Barbituate Screen Not Detected; U Benzodiazapine Screen Not Detected; U Buprenorphine Screen Not Detected; U Cannabinoids Screen DETECTED; U Cocaine Screen Not Detected; U Methadone Screen Not Detected; U Methamphetamine Screen Not Detected; U Opiates Screen DETECTED; U Oxycodone Screen Not Detected; U Phencyclidine Screen Not Detected; U Propoxyphene Screen Not Detected
[2019-07-03 18:30] LABS: International Normalized Ratio 2.03; Prothrombin Time Results 20.9 Sec (9.7-11.5)
--- NOTE | 2019-07-03 20:54 | NUR ---
PCU ADMIT PT BROUGHT TO PCU-14 FROM ER BY SHAYE @ APPROX 2015. PT A&O X4, SLID OVER FROM [facility] TO PCU BED BY 4 STAFF D/T PT C/O WEAKNESS & INABILITY TO AMBULATE WELL OVER THE LAST FEW WEEKS. PT BP LOW, OTHERWISE VSS. MONITOR SHOWS NSR, HR 60's w/ BRIEF TOUCH DOWN TO HR 40's. LUNG SOUNDS W/ EXP WHEEZE. SPO2 > 92% ON RA. PT SKIN YELLOW T/O. ABD FIRM AND DISTENDED. PT C/O "SOUR" STOMACHE BUT DENIES PAIN/DISCOMFORT. NS GTT INFUSING PER ORDERS. WILL CONTINUE TO MONITOR & PROVIDE CARE.
[2019-07-04 03:31] LABS: Hematocrit 34.9 % (37.0-53.0); Hemoglobin 12.1 g/dL (13.5-17.5); Mean Corpuscular HGB 35.8 pg (26.0-34.0); Mean Corpuscular HGB Conc 34.7 g/dL (31.5-36.5); Mean Corpuscular Volume 103 fL (80-100); Mean Platelet Volume 10.5 fL (9.1-12.4); NRBC Auto 0.4 /100 WBC (0.0-0.2); Platelet Count 163 K/mm3 (150-400); RDW Coefficient Variation 19.6 % (11.7-14.2); RDW Standard Deviation 71.5 fL (35.1-46.3); Red Blood Cell Count 3.38 M/mm3 (4.30-5.90); White Blood Cell Count 24.16 K/mm3 (4.00-11.30)
[2019-07-04 03:57] LABS: Alanine Aminotransfer (ALT/SGP 63 U/L (12-78); Albumin, Blood 1.1 g/dL (3.4-5.0); Albumin/Globulin Ratio 0.3 (0.8-1.8); Alk Phos 246 U/L (50-136); Anion Gap 9 mmol/L (6-16); Aspartate Aminotrans (AST/SGOT 292 U/L (12-37); Bilirubin, Total 17.6 mg/dL (0.1-1.0); Blood Urea Nitrogen 31 mg/dL (8-24); Bun/Creatinine Ratio 34.3 (12.0-20.0); CO2, Blood 26 mmol/L (21-32); Calcium, Blood 6.9 mg/dL (8.5-10.1); Chloride, Blood 102 mmol/L (98-108); Creatinine, Blood 0.91 mg/dL (0.60-1.20); Globulin, Blood 3.9 g/dL (2.2-4.0); Glomerular Filtration Rate >60 (60-); Glucose, Blood 98 mg/dL (70-99); Potassium, Blood 2.6 mmol/L (3.5-5.5); Sodium, Blood 137 mmol/L (136-145)
[2019-07-04 04:43] LABS: BAND PERCENT MAN 5 % (0-8); BASOPHILS PERCENT MAN 0 % (0-2); EOSINOPHILS PERCENT MAN 0 % (0-6); LYMPHOCYTES ABSOLUTE MAN 0.96 K/mm3 (0.84-5.20); LYMPHOCYTES PERCENT MAN 4 % (21-46); MONOCYTES ABSOLUTE MAN 2.41 K/mm3 (0.16-1.47); MONOCYTES PERCENT MAN 10 % (4-13); MYELOCYTE ABSOLUTE MAN 0.48 K/mm3 (0.00-0.00); MYELOCYTE PERCENT MAN 2 % (0-0); NEUTROPHILS ABSOLUTE MAN 20.29 K/mm3 (1.96-9.15); SEG NEUTROPHILS PERCENT MAN 79 % (41-73); TOTAL CELLS COUNTED 100
--- NOTE | 2019-07-04 05:07 | NUR ---
CALL TO MD / LOW POTASSIUM CALL TO MD HERNANDEZ THIS AM TO REPORT LOW K LEVEL OF 2.6. W/ ORDER FOR IV K CL SUPPLEMENTATION, SEE ORDER.
--- NOTE | 2019-07-04 05:56 | NUR ---
SHIFT SUMMARY PT CONTINUES TO BE A&O X4. VSS. MONITOR SHOWING SB-SR, HR 40's-80's. SPO2 > 92% ON RA. PT C/O "SOUR" STOMACHE. ABD FIRM & DISTENDED. PT BELCHING INTERMITTENTLY T/O SHIFT. SKIN JAUNDICED T/O. PT AWAITING GI CONSULT. URINE DARK TEA COLORED. IV K CL INFUSING PER ORDERS. WILL CONTINUE TO MONITOR & PROVIDE CARE UNTIL REPORT OFF TO DAY SHIFT RN.
--- NOTE | 2019-07-04 07:40 | NUR ---
AM ASSESSMENT: Pt resting in bed. Emesis bag at bedside with bile color emesis in it. Tea colored urine in urinal. Fresh bag given and urninal cleaned. Will treat for nasuea per orders. Pt denies pain, states that he is just nauseaus. LS clear. BT positive, abd distended but soft. HR reg. Generalzied edema noted. Pt seems very withdrawn. Uses sarcasam with communication. Skin very jaundiced/yellow in appearance. States that it has been this way for a couple weeks. VSS at this time. Call light in reach. Will continue to monitor and treat per orders.
[2019-07-04 14:25] LABS: Anion Gap 8 mmol/L (6-16); Blood Urea Nitrogen 28 mg/dL (8-24); Bun/Creatinine Ratio 31.5 (12.0-20.0); CO2, Blood 27 mmol/L (21-32); Calcium, Blood 6.8 mg/dL (8.5-10.1); Chloride, Blood 103 mmol/L (98-108); Creatinine, Blood 0.89 mg/dL (0.60-1.20); Glomerular Filtration Rate >60 (60-); Glucose, Blood 94 mg/dL (70-99); Potassium, Blood 3.1 mmol/L (3.5-5.5); Sodium, Blood 138 mmol/L (136-145)
--- NOTE | 2019-07-04 18:20 | NUR ---
SHIFT SUMMARY: Pt laying in bed. Has been nauseaus throughout the shift with some relief with zofran. Has had some clear and some light green emesis this shift. Pt has remained very flat affect. VSS this shift. Has denied pain. No other changes. Stable at this time.
[2019-07-05 03:51] LABS: Hematocrit 34.4 % (37.0-53.0); Hemoglobin 11.9 g/dL (13.5-17.5); Mean Corpuscular HGB 35.7 pg (26.0-34.0); Mean Corpuscular HGB Conc 34.6 g/dL (31.5-36.5); Mean Corpuscular Volume 103 fL (80-100); Mean Platelet Volume 10.3 fL (9.1-12.4); NRBC ABSOLUTE 0.11 K/mm3 (0.00-0.02); NRBC Auto 0.5 /100 WBC (0.0-0.2); Platelet Count 171 K/mm3 (150-400); RDW Coefficient Variation 19.4 % (11.7-14.2); RDW Standard Deviation 71.4 fL (35.1-46.3); Red Blood Cell Count 3.33 M/mm3 (4.30-5.90); White Blood Cell Count 23.31 K/mm3 (4.00-11.30)
[2019-07-05 04:19] LABS: Percent Saturation 86.9 % (20.0-50.0)
[2019-07-05 04:20] LABS: Alanine Aminotransfer (ALT/SGP 66 U/L (12-78); Albumin, Blood 1.2 g/dL (3.4-5.0); Albumin/Globulin Ratio 0.3 (0.8-1.8); Alk Phos 253 U/L (50-136); Anion Gap 9 mmol/L (6-16); Aspartate Aminotrans (AST/SGOT 305 U/L (12-37); Bilirubin, Total 18.7 mg/dL (0.1-1.0); Blood Urea Nitrogen 25 mg/dL (8-24); CO2, Blood 24 mmol/L (21-32); Calcium, Blood 6.6 mg/dL (8.5-10.1); Chloride, Blood 103 mmol/L (98-108); Creatinine, Blood 0.81 mg/dL (0.60-1.20); Globulin, Blood 3.9 g/dL (2.2-4.0); Glomerular Filtration Rate >60 (60-); Glucose, Blood 94 mg/dL (70-99); Potassium, Blood 3.1 mmol/L (3.5-5.5); Sodium, Blood 136 mmol/L (136-145); Total Protein, Blood 5.1 g/dL (6.4-8.2)
[2019-07-05 04:22] LABS: BAND PERCENT MAN 7 % (0-8); BASOPHILS PERCENT MAN 0 % (0-2); EOSINOPHILS PERCENT MAN 0 % (0-6); LYMPHOCYTES ABSOLUTE MAN 0.46 K/mm3 (0.84-5.20); LYMPHOCYTES PERCENT MAN 2 % (21-46); METAMYELOCYTE ABSOLUTE MAN 0.23 K/mm3 (0.00-0.00); METAMYELOCYTE PERCENT MAN 1 % (0-0); MONOCYTES ABSOLUTE MAN 1.39 K/mm3 (0.16-1.47); MONOCYTES PERCENT MAN 6 % (4-13); NEUTROPHILS ABSOLUTE MAN 21.21 K/mm3 (1.96-9.15); SEG NEUTROPHILS PERCENT MAN 84 % (41-73); TOTAL CELLS COUNTED 100
[2019-07-05 04:39] LABS: Acetaminophen, Random <2.0 ug/mL (10.0-30.0)
--- NOTE | 2019-07-05 07:42 | NUR ---
SHIFT SUMMARY PT MEDICAL STATUS. A&O X4. VSS. NO EVENTS OVER NIGHT. PT ABD FIRM & DISTENDED. PT BELCHING INTERMITTENTLY T/O SHIFT. PT C/O NAUSEA, MEDICATED PER EMAR X2 THIS SHIFT. PT DENIES EMESIS. URINE CONTINUES TO BE DARK BROWN. SKIN JAUNDICED. REPORT GIVEN TO DAY SHIFT RN.
[2019-07-05 08:07] LABS: HBSAG SCREEN Negative (Negative); HEP B CORE AB, TOT Negative (Negative); HEP C VIRUS AB <0.1 (0.0-0.9)
--- NOTE | 2019-07-05 10:48 | NUR ---
SHIFT SUMMARY PT ALERT AND ORIENTED, ANSWERING QUESTIONS APPROPRIATELY. VS STABLE. 02 SATS REMAIN ABOVE 90% ON RA. BP STABLE. PT COMPLAINS OF NAUSEA THIS AM. PT ATTEMPTED TO EAT BREAKFAST, BUT VOMITTED. DR. RÍOS AWARE AND NEW ORDERS FOR 1L NS. REPORT CALLED TO MEDICAL FLOOR RN. PT TO BE TAKEN UP BY BED.
--- NOTE | 2019-07-05 17:21 | NUR ---
SHIFT SUMMARY PT AXO, PLEASANT AND COOPERATIVE WITH CARE THOUGH WITHDRAWN. VSS. PT TRANSFERRED FROM PCU 14 THIS SHIFT. PT JAUNDICED. URINE COLA COLORED. PT REPORTS FEELING BETTER OVERALL. PT'S DAUGHTER CALLED THIS NURSE FOR UPDATE. SHE INQUIRED ABOUT HIS TOLERANCE FOR RIDING IN THE CAR TO [place] SO THAT SHE CAN TAKE PATIENT HOME TO CARE FOR HIM THERE. PT TOLERATED LUNCH WELL. DENIES N/V. PT COMPLAINS OF MINOR PAIN HE STATES IS RELATED TO FLUID IN ABDOMEN. APPEARS TO BE RESTING COMFORTABLY AT THIS TIME. BED IN LOW POSITION, CALL LIGHT WITHIN REACH.
--- NOTE | 2019-07-06 04:05 | NUR ---
SHIFT SUMMARY HAS BEEN RESTING QUIETLY WITH FEW INTERRUPTIONS THIS SHIFT. ORIENTED. VERBAL RESPONSE APPROPRIATE TO QUESTIONS ASKED. ANTIBIOTICS INFUSING PER MD ORDERS - SEE MAR FOR DETAILS. REMAINS JAUNDICED. URINE DARK BROWN - ALMOST COFFEE COLORED. NO COMPLAINTS OF PAIN. CALL LIGHT IN REACH.
[2019-07-06 04:54] LABS: Hematocrit 35.2 % (37.0-53.0); Hemoglobin 12.2 g/dL (13.5-17.5); Mean Corpuscular HGB 35.9 pg (26.0-34.0); Mean Corpuscular HGB Conc 34.7 g/dL (31.5-36.5); Mean Corpuscular Volume 104 fL (80-100); Mean Platelet Volume 10.2 fL (9.1-12.4); NRBC ABSOLUTE 0.11 K/mm3 (0.00-0.02); NRBC Auto 0.5 /100 WBC (0.0-0.2); Platelet Count 155 K/mm3 (150-400); RDW Standard Deviation 70.5 fL (35.1-46.3); White Blood Cell Count 24.17 K/mm3 (4.00-11.30)
[2019-07-06 05:15] LABS: Alanine Aminotransfer (ALT/SGP 65 U/L (12-78); Albumin, Blood 1.1 g/dL (3.4-5.0); Albumin/Globulin Ratio 0.3 (0.8-1.8); Alk Phos 265 U/L (50-136); Anion Gap 7 mmol/L (6-16); Aspartate Aminotrans (AST/SGOT 323 U/L (12-37); Bilirubin, Total 19.5 mg/dL (0.1-1.0); Blood Urea Nitrogen 24 mg/dL (8-24); Bun/Creatinine Ratio 31.4 (12.0-20.0); CO2, Blood 26 mmol/L (21-32); Calcium, Blood 6.9 mg/dL (8.5-10.1); Chloride, Blood 102 mmol/L (98-108); Creatinine, Blood 0.77 mg/dL (0.60-1.20); Globulin, Blood 4.1 g/dL (2.2-4.0); Glomerular Filtration Rate >60 (60-); Glucose, Blood 80 mg/dL (70-99); Sodium, Blood 135 mmol/L (136-145); Total Protein, Blood 5.2 g/dL (6.4-8.2)
[2019-07-06 05:50] LABS: BAND PERCENT MAN 6 % (0-8); BASOPHILS PERCENT MAN 0 % (0-2); EOSINOPHILS PERCENT MAN 0 % (0-6); LYMPHOCYTES ABSOLUTE MAN 0.72 K/mm3 (0.84-5.20); LYMPHOCYTES PERCENT MAN 3 % (21-46); MONOCYTES ABSOLUTE MAN 0.96 K/mm3 (0.16-1.47); MONOCYTES PERCENT MAN 4 % (4-13); MYELOCYTE ABSOLUTE MAN 0.24 K/mm3 (0.00-0.00); MYELOCYTE PERCENT MAN 1 % (0-0); NEUTROPHILS ABSOLUTE MAN 22.23 K/mm3 (1.96-9.15); SEG NEUTROPHILS PERCENT MAN 86 % (41-73); TOTAL CELLS COUNTED 100
[2019-07-06 07:54] LABS: International Normalized Ratio 2.56
[2019-07-06 09:08] LABS: HBSAG SCREEN Negative (Negative); HEP A AB, IGM Negative (Negative); HEP B CORE AB, IGM Negative (Negative); HEP C VIRUS AB <0.1 (0.0-0.9)
--- NOTE | 2019-07-06 19:21 | NUR ---
a+o but lethargic, jaundiced, edema in lower extremities, rm air, saline locked, call light in reach, reviewed pt with returning nurse, no significant changes noted during shift
--- NOTE | 2019-07-07 03:06 | NUR ---
SHIFT SUMMARY HAS BEEN RESTING QUIETLY WITH BOUT OF WAKEFULNESS NOTED WHEN DOING ROUNDS. NO COMPLAINTS VOICED. CALL LIGHT IN REACH.
--- NOTE | 2019-07-07 09:56 | NUR ---
DR. BROCK AT BEDSIDE FOR ASSESSMENT @ 0900. PT WITH ASCITES, PROVIDER CONCERNED ABOUT NEEDING POSSIBLE PARACENTESIS. ORDERED ABD U/N, 3 UNITS FFP, AND PARACENTESIS IF NEEDED. PER U/S TECH AND [facility], FLUID COLLECTION NOT LARGE ENOUGH TO RISK PARACENTESIS. RELATED THIS INFORMATION TO BY PHONE; ACKNOWLEDGED RECEIPT OF INFORMATION, ORDERED THAT PT GET FFP ANYWAY. THIS AUTHOR VERBALIZED UNDERSTANDING.
--- NOTE | 2019-07-07 18:50 | NUR ---
SHIFT SUMMARY: A&O X 3, WITHDRAWN, FLAT AFFECT; WANTS DOOR CLOSED AND ROOM KEPT DARK. DENIED PAIN AND NAUSEA; IS BELCHING FREQUENTLY. ON ROOM AIR, BILL CHECKER COUGH. ABD QUITE DISTENDED AND TTP. THREE UNITS FFP GIVEN TODAY, NO REACTION NOTED. SKIN JAUDICED. PLAN IS POSSIBLE D/C TOMORROW.
--- NOTE | 2019-07-08 02:28 | NUR ---
SHIFT SUMMARY PT WAS ASSISTED WITH SHOWER AT SHIFT COMMENCE AND THEN ASSISTED BACK TO BED. HAS BEEN RSTING QUIETLY WITH NO NOTED DISTRESS SINCE. CALL LIGHT IN REACH. URINAL IN REACH.
[2019-07-08 05:25] LABS: BASOPHILS ABSOLUTE AUTO 0.08 K/mm3 (0.00-0.23); BASOPHILS PERCENT AUTO 0 % (0-2); Hematocrit 33.4 % (37.0-53.0); Hemoglobin 11.5 g/dL (13.5-17.5); LYMPHOCYTES ABSOLUTE AUTO 0.96 K/mm3 (0.84-5.20); LYMPHOCYTES PERCENT AUTO 4 % (21-46); MONOCYTES ABSOLUTE AUTO 1.46 K/mm3 (0.16-1.47); MONOCYTES PERCENT AUTO 7 % (4-13); Mean Corpuscular HGB 35.5 pg (26.0-34.0); Mean Corpuscular HGB Conc 34.4 g/dL (31.5-36.5); Mean Corpuscular Volume 103 fL (80-100); Mean Platelet Volume 10.6 fL (9.1-12.4); NRBC ABSOLUTE 0.06 K/mm3 (0.00-0.02); NRBC Auto 0.3 /100 WBC (0.0-0.2); Platelet Count 152 K/mm3 (150-400); RDW Coefficient Variation 19.2 % (11.7-14.2); RDW Standard Deviation 70.2 fL (35.1-46.3); Red Blood Cell Count 3.24 M/mm3 (4.30-5.90)
[2019-07-08 05:39] LABS: International Normalized Ratio 2.24; Prothrombin Time Results 22.9 Sec (9.7-11.5)
[2019-07-08 05:41] LABS: EOSINOPHILS PERCENT AUTO 0 % (0-6); IMMATURE GRAN ABSOLUTE AUTO 1.71 K/mm3 (0.00-0.10); IMMATURE GRAN PERCENT AUTO 8 % (0-1); NEUTROPHILS ABSOLUTE AUTO 17.59 K/mm3 (1.96-9.15); NEUTROPHILS PERCENT AUTO 81 % (41-73)
[2019-07-08 05:45] LABS: Alanine Aminotransfer (ALT/SGP 53 U/L (12-78); Albumin, Blood 1.4 g/dL (3.4-5.0); Albumin/Globulin Ratio 0.4 (0.8-1.8); Alk Phos 257 U/L (50-136); Anion Gap 9 mmol/L (6-16); Aspartate Aminotrans (AST/SGOT 263 U/L (12-37); Bilirubin, Total 20.8 mg/dL (0.1-1.0); Blood Urea Nitrogen 29 mg/dL (8-24); CO2, Blood 23 mmol/L (21-32); Calcium, Blood 7.6 mg/dL (8.5-10.1); Chloride, Blood 101 mmol/L (98-108); Creatinine, Blood 0.91 mg/dL (0.60-1.20); Globulin, Blood 3.8 g/dL (2.2-4.0); Glomerular Filtration Rate >60 (60-); Glucose, Blood 87 mg/dL (70-99); Potassium, Blood 3.1 mmol/L (3.5-5.5); Sodium, Blood 133 mmol/L (136-145); Total Protein, Blood 5.2 g/dL (6.4-8.2)
[2019-07-08 06:03] LABS: BAND PERCENT MAN 6 % (0-8); BASOPHILS PERCENT MAN 0 % (0-2); EOSINOPHILS PERCENT MAN 0 % (0-6); LYMPHOCYTES ABSOLUTE MAN 0.87 K/mm3 (0.84-5.20); LYMPHOCYTES PERCENT MAN 4 % (21-46); MONOCYTES PERCENT MAN 6 % (4-13); PROMYELOCYTE ABSOLUTE MAN 0.21 K/mm3 (0.00-0.00); PROMYELOCYTE PERCENT MAN 1 % (0-0); SEG NEUTROPHILS PERCENT MAN 83 % (41-73); TOTAL CELLS COUNTED 100
[2019-07-08] MEDS ORDERED: CIPR500 PO (11:02)
[2019-07-08] MEDS ORDERED: FOLI400 PO (11:02)
[2019-07-08] MEDS ORDERED: SENN187 PO (11:04)
[2019-07-08] MEDS ORDERED: VITAMIN B-1100 MG PO (11:05)
[2019-07-08] MEDS ORDERED: NADO20 PO (11:06)
[2019-07-08] MEDS ORDERED: VISBIOME 112.51 EACH PO (11:11)
--- NOTE | 2019-07-08 13:31 | NUR ---
PATIENT DISCHARGED TO HOME AT 1130. [facility]. IV SL REMOVED WITHOUT INCIDENT. PT HAS ALL BELONGINGS, INCLUDING CELL PHONE AND CHARGE. TAKEN DOWNSTAIRS BY W/C TO PATIENT ENTRANCE BY Janet MAHONEY CNA.
[2019-07-14 13:07] LABS: HEPATITIS C QUANTITATION HCV Not Detected IU/mL (.)
[2019-07-14 15:08] LABS: HBV IU/ML HBV DNA not detected IU/mL (.)
== END 2019-07-08 11:28 | disposition home or self-care (01) | DRG 871 ==
LOC: ER 13:46 → PCU 19:57 → MEDS 19:57 → PCU 20:09 → MEDS 07-05 10:59 → ENPENDDIS 07-08 09:30 → MEDS 07-08 11:28
PROVIDERS: Emergency Medicine; Internal Medicine; Physician Assistant; Student in an Organized Health Care Education/Training Program; ADMIT Hospitalist
DX: A41.9 Sepsis, unspecified organism (principal); E43 Unspecified severe protein-calorie malnutrition; I50.22 Chronic systolic (congestive) heart failure; E87.2 Acidosis; K76.6 Portal hypertension; E87.1 Hypo-osmolality and hyponatremia; K70.31 Alcoholic cirrhosis of liver with ascites; R65.20 Severe sepsis without septic shock; J44.9 Chronic obstructive pulmonary disease, unspecified; Z87.891 Personal history of nicotine dependence; E80.6 Other disorders of bilirubin metabolism; M19.90 Unspecified osteoarthritis, unspecified site; I11.0 Hypertensive heart disease with heart failure; F15.10 Other stimulant abuse, uncomplicated; D64.9 Anemia, unspecified; E87.6 Hypokalemia; K70.40 Alcoholic hepatic failure without coma
CPT/HCPCS: 36415; 36430; 71046; 74177; 76705; 80048; 80053; 80074; 81001; 82103; 82140; 82390; 82607; 82728; 82746; 83516; 83540; 83550; 83605; 85025; 85610; 86038; 86317; 86704; 86708; 86803; 86900; 86901; 87040; 87086; 87340; 87517; 87522; 93005; 93010; 94640; 94760; 96361; 96365-59; 96375; 99285-25; A9270; C9113; G0480; J1650; J2405; J2543; J3480; J7030; J7050; P9059; Q9967

== ENCOUNTER 2019-07-16 11:30 | Inpatient (IN) | payer OTHER ==
[~2019-07-16] VITALS: Ht 175.3 cm; Wt 117.9 kg
[~2019-07-16 11:30] MED LIST changes: +CIPR500 PO; +FOLI400 PO; +NADO20 PO; +SENN187 PO; +VISBIOME 112.51 EACH PO; +VITAMIN B-1100 MG PO
[2019-07-16 12:17] LABS: BASOPHILS ABSOLUTE AUTO 0.15 K/mm3 (0.00-0.23); BASOPHILS PERCENT AUTO 1 % (0-2); EOSINOPHILS PERCENT AUTO 0 % (0-6); Hematocrit 38.9 % (37.0-53.0); Hemoglobin 13.9 g/dL (13.5-17.5); IMMATURE GRAN ABSOLUTE AUTO 1.15 K/mm3 (0.00-0.10); IMMATURE GRAN PERCENT AUTO 4 % (0-1); LYMPHOCYTES ABSOLUTE AUTO 1.32 K/mm3 (0.84-5.20); LYMPHOCYTES PERCENT AUTO 5 % (21-46); MONOCYTES PERCENT AUTO 6 % (4-13); Mean Corpuscular HGB 36.5 pg (26.0-34.0); Mean Corpuscular HGB Conc 35.7 g/dL (31.5-36.5); Mean Corpuscular Volume 102 fL (80-100); Mean Platelet Volume 11.7 fL (9.1-12.4); NEUTROPHILS ABSOLUTE AUTO 22.91 K/mm3 (1.96-9.15); NEUTROPHILS PERCENT AUTO 84 % (41-73); Platelet Count 166 K/mm3 (150-400); RDW Coefficient Variation 17.5 % (11.7-14.2); RDW Standard Deviation 66.1 fL (35.1-46.3); Red Blood Cell Count 3.81 M/mm3 (4.30-5.90); White Blood Cell Count 27.13 K/mm3 (4.00-11.30)
[2019-07-16 12:29] LABS: International Normalized Ratio 2.16; Prothrombin Time Results 22.1 Sec (9.7-11.5)
[2019-07-16 12:36] LABS: Albumin/Globulin Ratio 0.2 (0.8-1.8); Bilirubin, Total 23.2 mg/dL (0.1-1.0); Bun/Creatinine Ratio 32.1 (12.0-20.0); Calcium, Blood 6.8 mg/dL (8.5-10.1); Creatinine, Blood 3.08 mg/dL (0.60-1.20); Magnesium, Blood 2.3 mg/dL (1.6-2.4); Potassium, Blood 4.7 mmol/L (3.5-5.5)
[2019-07-16] MEDS ORDERED: CIPR500 PO (13:06)
[2019-07-16] MEDS ORDERED: Florastor250 MG PO (13:07)
--- NOTE | 2019-07-16 13:17 | NUR ---
Spoke with Dr Luna and discussed case. Dr Luna reports Pt may benefit from goals of care discussion. Pt resting on gurny and denies pain at this time. Pt is A&OX3/4. Pt responds incorrectly to current season but does state correct year. Pt's skin is significantly jaundiced. Engaged in therapeutic listening as Pt states "Im dying". Encouraged Pt to discuss fears and concerns. Pt reports no fear of dying. Discussed options for care including hospice. Pt reports having a discussion with his girlfriend Sole and both are in agreement for hospice. Pt reports girlfriend Sole is healthcare proxy. Educated on comfort care and hospice philosophy. Pt reports comfort care and hospice are his wishes. Pt reports he does not want CPR or to be intubated. Pt reports no other concerns at this time. Called and spoke with Pt's girlfriend Sole. Sole confirms goal for hospice and reports she can no longer care for him. Sole reports he has been bed bound since D/C from the hospital with the exception of a PCP appointment. She reports needing 3 people to assist with transfering him. Pt reports Pt needs assistance with transfers, is not ambulatory, needs assistance with bathing, and is intermeittenly incontinent. Pt on occasion is able to use urinal. Pt curently receives home health services through [facility]. Spoke with ED Cycle Director Stacey, discussed case, concerns, and goals for comfort care and placement with [facility]. Spoke with Dr Luna and relayed Pt and girlfriends wishes. Dr Luna will discuss case with hospitalist for admission on comfort care. Palliative Care will remain available.
--- NOTE | 2019-07-16 14:15 | NUR ---
RECEIEVED REPORT FROM FATMATA MARTINEZ RN AT 1414. PATIENT TO TRANSFER TO ROOM 361.
--- NOTE | 2019-07-16 16:17 | NUR ---
PATIENT ARRIVE TO ROOM 361 JUST AFTER 1400 AND WAS SETTLED INTO THE HOSPITAL BED WITH THE ASSIST OF THREE HOSPITAL STAFF. PATIENT IS IRRITABLE, HOWEVER SOMEWHAT COOPERATIVE. SKIN AND EYES EXTREMELY JAUNDICED AND BUTTOCKS RED. H&P MOSTLY JUST UPDATED FROM HIS LAST STAY IN WHICH HE WAS DISCHARGED A WEEK AGO. PATIENT DENIES ANY MEDICATION CHANGES. HE STATES HE IS BEDBOUND BUT CONTINENT. BP 70/43 AT ARRIVAL TO THE FLOOR, DR KILPATRICK NOTIFIED AND JUST PROVIDED ORDERS TO INCREASE SCHEDULED MIDODRINE FROM 2.5MG TO 5MG TID. MEDICATIONS ADMINISTERED ORDERED. PATIENT IN ROOM WATCHING TV AT THIS TIME. CALL LIGHT WITHIN REACH. WILL CONTINUE TO MONITOR AND PROVIDE CARE NEEDED.
[2019-07-16 19:15] LABS: Source, Urine Catheter
[2019-07-16 19:19] LABS: Blood, Urine 1+ (Neg); Glucose Qualitative, Urine Neg (Neg); Ketones, Urine Neg (Neg); Leukocyte Esterase, Urine 1+ (Neg); Nitrite, Urine Pos (Neg); Protein, Urine 1+ (Neg); Urobilinogen, Urine 3+ (Normal)
[2019-07-16 20:00] LABS: Appearance, Urine Clear (Clear); Bilirubin, Urine 3+ (Neg); Color, Urine Orange (P-Yellow)
[2019-07-16 20:04] LABS: Red Blood Cells, Urine Rare /hpf (0-2)
[2019-07-16 20:06] LABS: Bacteria Many /hpf; Squamous Epithelial Cells Rare /hpf (Few)
[2019-07-17 05:35] LABS: BASOPHILS PERCENT AUTO 0 % (0-2); EOSINOPHILS PERCENT AUTO 0 % (0-6); Hematocrit 36.9 % (37.0-53.0); Hemoglobin 12.3 g/dL (13.5-17.5); IMMATURE GRAN ABSOLUTE AUTO 0.96 K/mm3 (0.00-0.10); IMMATURE GRAN PERCENT AUTO 4 % (0-1); LYMPHOCYTES ABSOLUTE AUTO 1.19 K/mm3 (0.84-5.20); LYMPHOCYTES PERCENT AUTO 5 % (21-46); MONOCYTES ABSOLUTE AUTO 1.66 K/mm3 (0.16-1.47); MONOCYTES PERCENT AUTO 6 % (4-13); Mean Corpuscular HGB 34.6 pg (26.0-34.0); Mean Corpuscular HGB Conc 33.3 g/dL (31.5-36.5); Mean Corpuscular Volume 104 fL (80-100); Mean Platelet Volume 11.6 fL (9.1-12.4); NEUTROPHILS ABSOLUTE AUTO 22.23 K/mm3 (1.96-9.15); NEUTROPHILS PERCENT AUTO 85 % (41-73); Platelet Count 143 K/mm3 (150-400); RDW Coefficient Variation 17.4 % (11.7-14.2); RDW Standard Deviation 66.6 fL (35.1-46.3); Red Blood Cell Count 3.56 M/mm3 (4.30-5.90); White Blood Cell Count 26.14 K/mm3 (4.00-11.30)
--- NOTE | 2019-07-17 05:52 | NUR ---
SHIFT SUMMARY PATIENT IS EXTREMELY JAUNDICED, HAD ONE BOUT OF NAUSEA AND VOMITING. PATIENT MEDICATED PER EMAR FOR THE NAUSEA. IV PATENT AND INFUSING WITH NORMAL SALINE AT 100 ML/HR. BED IN LOWEST POSITION WITH WHEELS LOCKED. CALL LIGHT WITHIN REACH. REPORT GIVEN TO ONCOMING RN.
[2019-07-17 06:00] LABS: Albumin, Blood 1.3 g/dL (3.4-5.0); Albumin/Globulin Ratio 0.4 (0.8-1.8); Bun/Creatinine Ratio 32.9 (12.0-20.0); Calcium, Blood 6.2 mg/dL (8.5-10.1); Creatinine, Blood 3.31 mg/dL (0.60-1.20); Globulin, Blood 3.2 g/dL (2.2-4.0); Magnesium, Blood 2.1 mg/dL (1.6-2.4); Potassium, Blood 3.8 mmol/L (3.5-5.5); Total Protein, Blood 4.5 g/dL (6.4-8.2)
[2019-07-17 06:07] LABS: Bilirubin, Total 23.8 mg/dL (0.1-1.0)
--- NOTE | 2019-07-17 14:38 | NUR ---
PT BLADDER SCAN WAS 1130. STRAIGHT CATHING PER PROTOCOL. PT HAS HAD 100 OUT ALL SHIFT.
[2019-07-17 15:11] LABS: Blood, Urine 2+ (Neg); Glucose Qualitative, Urine Neg (Neg); Ketones, Urine 1+ (Neg); Leukocyte Esterase, Urine 1+ (Neg); Nitrite, Urine Neg (Neg); Protein, Urine 2+ (Neg); Specific Gravity, Urine 1.015 (1.003-1.022); Urobilinogen, Urine 3+ (Normal)
[2019-07-17 15:14] LABS: Appearance, Urine Hazy (Clear); Bilirubin, Urine 3+ (Neg); Color, Urine Amber (P-Yellow)
[2019-07-17 15:30] LABS: Albumin, Blood 1.7 g/dL (3.4-5.0); Albumin/Globulin Ratio 0.5 (0.8-1.8); Bilirubin, Total 26.3 mg/dL (0.1-1.0); Bun/Creatinine Ratio 26.2 (12.0-20.0); Calcium, Blood 6.4 mg/dL (8.5-10.1); Creatinine, Blood 3.36 mg/dL (0.60-1.20); Globulin, Blood 3.2 g/dL (2.2-4.0); Potassium, Blood 3.9 mmol/L (3.5-5.5); Total Protein, Blood 4.9 g/dL (6.4-8.2)
[2019-07-17 15:35] LABS: Albumin, Blood 1.4 g/dL (3.4-5.0); Anion Gap 16 mmol/L (6-16); Blood Urea Nitrogen 110 mg/dL (8-24); Bun/Creatinine Ratio 35.6 (12.0-20.0); CO2, Blood 16 mmol/L (21-32); CPK Creatine Kinase 34 U/L (39-308); Calcium, Blood 6.1 mg/dL (8.5-10.1); Chloride, Blood 105 mmol/L (98-108); Creatinine, Blood 3.09 mg/dL (0.60-1.20); Glomerular Filtration Rate 22 (60-); Glucose, Blood 90 mg/dL (70-99); Phosphorus, Blood 7.4 mg/dL (2.5-4.9); Potassium, Blood 3.9 mmol/L (3.5-5.5); Sodium, Blood 137 mmol/L (136-145)
[2019-07-17 15:44] LABS: Red Blood Cells, Urine 0-2 /hpf (0-2)
[2019-07-17 15:45] LABS: Amorphous Mod (0-Heavy); Bacteria Few /hpf; Squamous Epithelial Cells Few /hpf (Few)
--- NOTE | 2019-07-17 17:03 | NUR ---
PT RESTING AT THIS TIME .
--- NOTE | 2019-07-18 06:17 | NUR ---
ROTARY SHEAR OPERATOR SUMMARY After initially receiving 15mg of Roxynol for generalized pain, Al was able to sleep very soundly for the rest of the night. Woke very briefly for gentle repositioning every 2-3 hours. Girlfriend Sole assisted where she could in personal care, and stayed quietly in room overnight. (She took care of him at home until this hospitalization) Skin extremely jaundiced. Eyes Icteric and abdomen very large and round. Urine output was minimal in araya. Bladder only scanned for <90 ml. Patient appeared quite restful this morning.
--- NOTE | 2019-07-18 14:55 | NUR ---
pt comfortable. SO has been has been at bedside. Review of needs with nursing.
--- NOTE | 2019-07-18 18:31 | NUR ---
SHIFT SUMMARY PT SPEECH SLURRED THIS MORNING BUT INCREASED THIS EVENING. HAS BEEN ASLEEP MOST OF DAY WITH S.O. OUT FOR A FEW HOURS THIS AFTERNOON. SECRETIONS MORE NOTICEABLE THIS EVENING WELL. WAS REPORTING BURNING PAIN TO BUTTOCKS THIS MORNING WHICH HE REPORTS HAS IMPROVED THIS EVENING AND HAS BEEN REPOSITIONED FOR COMFORT. EYES SUNKEN IN AND DISCOLORED AROUND PERIMETER. JAUNDICED SKIN WITH DISTENDED ABDMOMEN.
--- NOTE | 2019-07-18 23:21 | NUR ---
Comfort check on patient and Sole. Both sleeping quite soundly. Did not wake patient for repositioning or cath care. Will continue close monitoring.
--- NOTE | 2019-07-19 06:21 | NUR ---
SHOE LACER SUMMARY Patient appeared comfortble through the night with Roxynol given multiple times per hospice orders. Sole participating in care and asking questions about the dying process and what else she can do to ensure Al's comfort. Patient already wearing scopalomine patch was administered atropine gtts for increasing rattle and secretions. Tolerating Q2 gentle turning. Patient is still able to answer questions with brief answers most of the time.
--- NOTE | 2019-07-19 15:49 | NUR ---
[facility] COMFORT CARE VISIT. Pt's son had arrived and was at bedside. Pt with audible upper airway secretions noted. RN in room providing care and the two of us adjusted pt's position and placed him on his right side. He had been on the left t/o am and on back for a short while today. Pt did not show nonverbal indicators of pain, discomfort, distress, anxiety or agitation with repositioning. Pt has had scopolamine patch applied already. Time spent talking with son another family member, answering his questions. Son grieving loss of time with his dad. He visited a week ago and carried out plan to return to his home in [place] to pack up and move here to help care for his dad. He did not anticipate his dad's rapid decline in health. Son listened to and supported. I encouraged him to continue having conversations he needed to have with his dad whether dad was responsive or not. Educated on s/s to report if noted. Encouraged son and family to take breaks as needed, get rest, hydration and food regulary. Fresh coffee to be brought to son. He was appreciative of information and support. Appropriately tearful and grieving the loss of his dad.
--- NOTE | 2019-07-19 19:30 | NUR ---
SHIFT SUMMARY PT ON COMFORT CARE. SLEEPING THROUGHOUT THE DAY THOUGH WAKING AT TIMES WITH ANXIETY AND PAIN. MEDICATED PER EMAR. THERAPEUTIC COMMUNICATION AND ACTIVE LISTENING UTILIZED THROUGHOUT THE DAY WHILE INTERACTING WITH FAMILY. PT MEDICATED FOR SECRETIONS THOUGH HIS BREATHING CONTINUES TO SOUND VERY GURGLY. SPOUSE COMPLETING ORAL CARE REGULARLY. BED IN LOW POSITION, CALL LIGHT WITHIN REACH.
--- NOTE | 2019-07-20 04:26 | NUR ---
SUMMARY: PT REMAINS ON COMFORT CARE W/FAMILY AT BEDSIDE. HE'S NONVERBAL AND MOSTLY NONRESPONSIVE BUT DOES OPEN EYES DURING REPOSITIONING. SCOPALAMINE PATCH IS IN PLACE AND ATROPINE GTTS PROVIDED REGULARLY T/O NOCTE FOR ORAL SECRETIONS. ROXINOL PROVIDED PRN FOR S/S AIR HUNGER AND FACIAL GRIMACES. VALDES IS PATENT AND DRAINING DARK CONCENTRATED URINE. MOUTH CARE PROVIDED AND REPOSITIONING ATTENDED TO. RESPS ARE EVEN BUT TACHYPNEIC, NO APNEA OBSERVED THIS SHIFT. HE APPEARED COMFORTABLE FOR THE MAJORITY OF THE SHIFT. SUPPORT PROVIDED TO FAMILY AND COMFORT CARE CART OBTAINED FOR ROOM. NO ACUTE CHANGES, WCTM AND REPORT TO DAY RN.
--- NOTE | 2019-07-20 14:47 | NUR ---
PAL CARE COMFORT CARE VISIT. CASE CONFERENCED WITH RN AND CM ALSO. SON HAD STEPPED OUT FOR A MEAL AND BREAK. SO, JENNIFER, HAD GONE HOME THIS AM. PRIMARY CHANGE NOTED SINCE YESTERDAY IS WET, GURGLING RESPIRATIONS NOTED T/O LUNGS AND UPPER AIRWAY. NURSE HAS BEEN ABLE TO REMOVE LARGE AMOUNT FROM UPPER AIRWAY. YESTERDAY THE CONGESTION AND SECRETIONS WERE ONLY NOTED IN UPPER AIRWAY. INCREASED RESPIRATORY RATE ALSO NOTICED THIS AFTERNOON AT 20/MIN. NO NONVERBAL INDICATORS OF DISTRESS OR PAIN NOTED. ONLY OCC MOAN WITH EXHALATION. PT REMAINS EXTREMELY JAUNDICED. URINE IN VALDES DRAINAGE BAG IS VERY DK BROWN. PT IS UNRESPONSIVE TO VOICE AND TOUCH THIS AFTERNOON WHEN I WAS IN TO SEE HIM. STAFF REPORT SOME OPENING OF EYES WITH REPOSITIONING.
--- NOTE | 2019-07-20 16:24 | NUR ---
Initial spiritual care note: Pt and family are non-rastafarian. I met with SOSole, at bedside, and she was very appreciative of emotional support. She told me about the of her 5 years ago. She shared stories about Al and her dissapointment that he could never stay sober. I provided anticipatory bereavement career development counselor to good effect. We had an easy rapport. Al appears to be nearing end of life. Skin mottled. I will continue to provide support as schedule permits.
--- NOTE | 2019-07-20 17:12 | NUR ---
TRANSFER TO 308 PT MOVED TO PROVIDE A LARGER SPACE FOR PT FAMILY TO REST. PT AROUSES WHEN MOVED. ORAL SUCTION SUCCESSFUL AT REMOVING A LARGE QUANTITY OF THICK, YELLOW SPUTUM. PT FAMILY SATISFIED WITH PT PROCESS AND HIS COMFORT CARE. CONTINUE POT.
--- NOTE | 2019-07-21 00:24 | NUR ---
COMFORT CARE PT ON COMFORT CARE. OCCASIONAL GRIMACE WHEN ORAL CARE IS PERFORMED & BITES DOWN ON ORAL SWAB. OPENS EYES OCCASIONALLY. HAS WET SOUNDING GURGLING NOISE IN BACK OF THROAT, MEDICATED 1X W/ATROPINE DROPS & PT STILL SOUNDING WET. DAY SHIFT RN REPORTED SHE WAS ORAL SUCTIONING PT. MEDICATED 1X W/10MG ROXANOL 10MIN BEFORE ORAL SUCTIONING & DARK BROWN LIQUID SECRETIONS WERE REMOVED FROM MOUTH/THROAT. REPOSITIONED PT. FAMILY IS AT BEDSIDE & I WILL CONT TO MONITOR PT.
--- NOTE | 2019-07-21 05:50 | NUR ---
SHIFT SUMMARY COMFORT CARE PT. READ PREVIOUS NOTE. OPENS EYES, MOANS, MOVED BUE ON OWN. REPOSITIONED PRN. HAD WET RATTLE/GURGLING SOUND IN THROAT-DEEP SUCTIONED 1X & DARK BROWN DRAINAGE WAS REMOVED FROM BACK OF THROAT. PTS FAMILY REPORTS GURGLING NOISE IS LESS & PT IS RESTING COMFORTABLY. DAY SHIFT RN REPORTED DEEP SUCTIONING WAS BEING PERFORMED ON PT FOR COMFORT. MEDICATED 1X W/ATROPINE & 1X W/ROXANOL. VALDES IS PATENT & DRAINING DARK BROWN URINE. FAMILY @BEDSIDE T/O NIGHT. CALL LIGHT IN REACH.
--- NOTE | 2019-07-21 10:34 | NUR ---
PAL CARE COMFORT CARE VISIT. Repositioned pt to left side with his RN who was in room caring for him. Son at bedside also. Pt had some moaning, grunting and grimacing with repositioning. RN medicated pt for pain per eMar. Pt remains grossly jaundiced over entire body and sclera. Eyes open for brief periods. Wet, gurgling respirations continue. RN has changed scopolomine patch and given atropine drops per eMAR this am. Son had questions re: dc planning to home with hospice and very concerned about s/s management in that event. Pt appears to be actively dying with decline noted each day. I am not certain pt would survive transport if it were to be sceduled in the next day or so. Scant dk brown urine noted in araya drainage bag. Dependent pooling of blood noted on backs of legs. Pal Care will remain available for support. I will request Floor Director visit.
--- NOTE | 2019-07-21 15:08 | NUR ---
Routine spiritual care note: I met with Phillip, pt's son, at bedside. He was tearful and expressed enormous remorse and anger. I gently helped him process these emotions. Phillip was often tearful, but appropriate and appreciative. Mr. Tipton appears non-responsive, very jaundiced, respirations even. He appears to be nearing end-of-life. Educated Phillip on signs of approaching per his request. Advised self-care. Ob Tech services will remain available.
--- NOTE | 2019-07-21 17:59 | NUR ---
SHIFT SUMMARY SEE EMAR FOR MED ADMINISTRATION. PT GURGLY THROUGHOUT SHIFT. MEDICATED NEEDED. ORAL CARE COMPLETED BY STAFF AND FAMILY. PT REPOSITIONED NEEDED & WHEN FAMILY ALLOWS. PT APPEARS COMFORTABLE AFTER MORPHINE ADMINISTRATION AND REPOSITION. FAMILY AT BEDSIDE AND PLEASED WITH CARE AT THIS TIME. WILL CONTINUE TO MONITOR FOR COMFORT UNTIL TURNOVER IS COMPLETE.
--- NOTE | 2019-07-22 04:35 | NUR ---
COMFORT CARE PT FAMILY MEMBERS PRESSED CALL LIGHT AROUND 0420. IN ROOM BY 0425 & SO STATES "I THINK WE'VE HAD A CHANGE." AT THIS TIME PT WAS GASPING FOR BREATH, I DID NOT HEAR A HB. CALLED CHARGE NURSE IN @0430 & PT WAS NO LONGER GASPING & NO HB HEARD.
--- NOTE | 2019-07-22 05:59 | NUR ---
Call back - 's SO and son were present most of the visit. Sole given room to reminisce on pt's spiritual and family background. Sole is a CG herself and talks about her experience with "AL." She reports having sufficient emotional support from her boss and a fabricio that provides context for the loss. Verbal prayer was offered on behalf of those present. PC assistant corporation counsel was provided and Sole verbalized gratitude for the visit.
== END 2019-07-22 04:30 | DRG 441 ==
LOC: ER 11:30 → MEDS 13:48
PROVIDERS: Emergency Medicine; Internal Medicine; ADMIT Internal Medicine
DX: K72.00 Acute and subacute hepatic failure without coma (principal); K76.7 Hepatorenal syndrome; K65.2 Spontaneous bacterial peritonitis; N17.9 Acute kidney failure, unspecified; I50.22 Chronic systolic (congestive) heart failure; K70.31 Alcoholic cirrhosis of liver with ascites; J44.9 Chronic obstructive pulmonary disease, unspecified; Z51.5 Encounter for palliative care; I11.0 Hypertensive heart disease with heart failure; Z66 Do not resuscitate; I95.9 Hypotension, unspecified; F17.200 Nicotine dependence, unspecified, uncomplicated; R60.1 Generalized edema; F10.10 Alcohol abuse, uncomplicated
CPT/HCPCS: 36415; 71045; 76770; 80053; 80069; 81001; 82140; 82550; 83735; 84300; 84550; 85025; 85610; 85730; 87086; 93005; 93010; 94640; 94760; 96360; 96361; 99285-25; A9270-GY; G0480; J1644; J2060; J2405; J7030; P9046